=== PATIENT | female | born 1985 | race Caucasian/White ===

== ENCOUNTER → 2022-02-11 | Outpatient (CLI) | payer BC ==
[2022-02-11 13:13] VITALS: BP 129/83; PULSE 78; TEMP 97.9; BMI 31.3
--- NOTE | 2022-02-11 13:50 | P.BASOAP ---
Subjective Progress Note Date: 02/11/22 No further reflux. She reports increased protein intake. She believes she is getting over 75 grams daily. Hair is not falling out as much. No food journal. She feels great. She has lost 80 pounds. She is going to the gym three times per week. She is happy with her level of activity. She has appetite. She has occasional appetite. Follow up for anniversary. Objective - Vital Signs Vital signs: Vital Signs Temp 97.9 F 02/11/22 13:09 Pulse 78 02/11/22 13:09 Resp BP 129/83 02/11/22 13:09 Pulse Ox FiO2 Intake & Output 02/10/22 02/11/22 02/11/22 18:59 06:59 18:59 Weight 78.925 kg Assessment/Plan Plan: Date: 02/11/22 Initial Weight: 108.499 kg Initial BMI: 43.0 Current Weight: 78.925 kg Current BMI: 31.3 Type of Surgery: Total Volume in Band: Previous Volume: Volume Removed: Volume Added: Band Size:
[2022-02-11 14:57] LABS: INR 0.9 (<1.2)
[2022-02-11 14:58] LABS: Partial Thromboplastin Time 24.7 sec (22.0-30.0); Prothrombin Time 10.3 sec (9.0-12.0)
[2022-02-11 20:05] LABS: % Iron Saturation 18.28 (12.00-45.00); ALT 19 U/L (8-44); AST 22 U/L (13-35); Albumin 4.5 g/dL (3.8-4.9); Alkaline Phosphatase 46 U/L (41-126); BUN/Creat Ratio 17.11 Ratio (12.00-20.00); Blood Urea Nitrogen 15.4 mg/dL (9.0-27.0); Calcium 9.5 mg/dL (8.7-10.3); Carbon Dioxide 21.4 mmol/L (20.0-27.5); Chloride 106 mmol/L (96-109); Globulin 2.5 g/dL (1.6-3.3); Glucose 90 mg/dL (70-110); Iron 71 ug/dL (50-170); Magnesium 2.4 mg/dL (1.5-2.4); Non-African American GFR(CKD) 81.1 (60.0-200.0); Phosphorus 3.9 mg/dL (2.4-5.1); Potassium 4.1 mmol/L (3.5-5.5); Sodium 141 mmol/L (135-145); Total Bilirubin <0.15 mg/dL (0.30-1.20); Total Iron Binding Capacity 391 ug/dL (228-460)
[2022-02-11 20:28] LABS: Chol/HDL Ratio 4.97 Ratio; LDL Cholesterol,Calculated 71.4 mg/dL (0.0-131.0); Prealbumin 28.3 mg/dL (18.0-42.0)
[2022-02-11 21:37] LABS: Ferritin 44.4 ng/mL (10.0-291.0)
[2022-02-11 21:51] LABS: HCT 43.1 % (37.2-46.3); HGB 14.5 g/dL (12.0-15.0); MCH 30.9 pg (27.0-32.0); MCHC 33.6 g/dL (32.0-37.0); MCV 91.9 fL (80.0-97.0); Mean Platelet Volume 9.2 fL (9.5-12.2); NRBC Per 100 WBC 0 /100 WBCS (0.0-0.0); Platelet Count 288 X 10*3/uL (140-440); RBC 4.69 X 10*6/uL (4.10-5.20); RDW 13.1 % (11.5-14.5); WBC 9.12 X 10*3/uL (4.50-10.00)
[2022-02-12 13:52] LABS: Zinc, Serum 66 ug/dL (60-130)
[2022-02-13 06:00] LABS: Vit B1(Thiamine) 70 ug/L (38-122)
[2022-02-13 08:08] LABS: Vitamin A 61 ug/dL (38-106)
== END | disposition home or self-care (01) ==
LOC: MERGE 01-21 13:15 → BARWHC3 12:39
PROVIDERS: ATTEND Surgery Plastic and Reconstructive Surgery
DX: E66.01 Morbid (severe) obesity due to excess calories (principal); E89.1 Postprocedural hypoinsulinemia; D50.8 Other iron deficiency anemias; D50.9 Iron deficiency anemia, unspecified; K91.2 Postsurgical malabsorption, not elsewhere classified; E44.0 Moderate protein-calorie malnutrition; E44.1 Mild protein-calorie malnutrition; E45 Retarded development following protein-calorie malnutrition; E46 Unspecified protein-calorie malnutrition; E55.9 Vitamin D deficiency, unspecified; K74.1 Hepatic sclerosis; N19 Unspecified kidney failure; T56.894A Toxic effect of other metals, undetermined, initial encounter; K50.90 Crohn's disease, unspecified, without complications
CPT/HCPCS: 80053; 80061; 82306; 82607; 82728; 82746; 83036; 83540; 83550; 83735; 83970; 84100; 84134; 84255; 84425; 84443; 84590; 84630; 85027; 85610; 85730; 97803; 99211

== ENCOUNTER → 2022-10-28 | Outpatient (CLI) | payer BC ==
[2022-10-28 15:30] VITALS: BP 141/88; PULSE 80; TEMP 98.2; BMI 34.5
--- NOTE | 2022-10-28 16:18 | P.HPBAR ---
Bariatric H&P - History & Physicial H&P Date: 10/28/22 History & Physicial: Visit/CC: sleeve F/U Patient initial contact: Initial weight: 108.499 kg Initial weight in pounds: 239.20 Height: 5 ft 2.5 in Initial BMI: 43.0 Last weight: Current weight: 87.09 kg Current weight in pounds: 192.00 Current BMI: 34.5 [place] body weight (based on NIH guidelines): 51.029 kg Excess body weight loss: 37.2% The patient is a 37 year-old F who presents for Bariatric Assessment. She comes in with 20 pounds weight gain following of her father. She was depressed. She is looking for weight loss. Dosage of sertraline causes weight gain. Plan for blood work and 2 week protein diet. She has dysphagia, chest pian, and intractable nausea. Recommend upper endoscopy. Past Medical History Past Medical History: Cancer, GERD/Reflux, Hypertension, Skin Disorder, Sleep Apnea/CPAP/BIPAP Additional Past Medical History / Comment(s): basal cell/squamous cell cancer. uses CPAP. bronchitis. History of Any Multi-Drug Resistant Organisms: None Reported Past Surgical History: Adenoidectomy, Bariatric Surgery, Tonsillectomy Additional Past Surgical History / Comment(s): wisdom teeth. basal cell/squamous cells removed. polyp removed 2020 in back of throat. EGD, gastric sleeve 2020 Past Anesthesia/Blood Transfusion Reactions: Previous Problems w/ Anesthesia Additional Past Anesthesia/Blood Transfusion Reaction / Comm: STATES HAD POST SUCCINYLOCHOLINE MYALGIA ONE TIME DURING POLYPS BEING REMOVED FROM THROAT Past Psychological History: Anxiety, Depression Additional Psychological History / Comment(s): depression.-RESOLVED Smoking Status: Former smoker Past Alcohol Use History: Rare Additional Past Alcohol Use History / Comment(s): quit smoking 11/14/20 Past Drug Use History: None Reported - Past Family History Mother Family Medical History: Deep Vein Thrombosis (DVT) Additional Family Medical History / Comment(s): brain aneuyrsm Surgical - Exam Vital Signs Temp Pulse BP 98.2 F 80 141/88 10/28/22 15:28 10/28/22 15:28 10/28/22 15:28 Bariatric Checklist Checklist: Plan: Checklist: EGD: 1. Hiatal hernia: 2. H. Pylori: HgbA1c: Vitamin D: Smoking: Primary care physician referral: Dr. Smith Psychiatry clearance: Cardiology clearance: Sleep study: Diet journal: VTE risk score: VTE risk level: Rehab needs at discharge:
== END ==
LOC: BARWHC3 14:33
PROVIDERS: ATTEND Surgery Plastic and Reconstructive Surgery
DX: E66.01 Morbid (severe) obesity due to excess calories (principal); I10 Essential (primary) hypertension; Z87.891 Personal history of nicotine dependence; Z68.34 Body mass index [BMI] 34.0-34.9, adult; Z88.5 Allergy status to narcotic agent; Z88.6 Allergy status to analgesic agent
CPT/HCPCS: 99211

== ENCOUNTER → 2022-10-29 | Outpatient (CLI) | payer BC ==
[2022-10-29 09:30] LABS: Partial Thromboplastin Time 23.5 sec (22.0-30.0); Prothrombin Time 10.2 sec (9.0-12.0)
[2022-10-29 14:48] LABS: HCT 41.6 % (37.2-46.3); HGB 14.2 g/dL (12.0-15.0); MCH 31.6 pg (27.0-32.0); MCHC 34.1 g/dL (32.0-37.0); MCV 92.7 fL (80.0-97.0); Mean Platelet Volume 9.2 fL (9.5-12.2); NRBC Per 100 WBC 0 /100 WBCS (0.0-0.0); Platelet Count 249 X 10*3/uL (140-440); RBC 4.49 X 10*6/uL (4.10-5.20); RDW 12.8 % (11.5-14.5); WBC 6.54 X 10*3/uL (4.50-10.00)
[2022-10-29 15:25] LABS: Chol/HDL Ratio 4.64 Ratio; Prealbumin 24.7 mg/dL (18.0-42.0)
[2022-10-29 15:59] LABS: % Iron Saturation 29.12 (12.00-45.00); ALT 20 U/L (8-44); AST 16 U/L (13-35); African American GFR (CKD) 126.5 (60.0-200.0); Albumin 4.3 g/dL (3.8-4.9); Albumin/Globulin Ratio 1.87 (1.60-3.17); Alkaline Phosphatase 36 U/L (41-126); BUN/Creat Ratio 17.29 Ratio (12.00-20.00); Blood Urea Nitrogen 12.1 mg/dL (9.0-27.0); Calcium 9.2 mg/dL (8.7-10.3); Carbon Dioxide 21.5 mmol/L (20.0-27.5); Chloride 105 mmol/L (96-109); Globulin 2.3 g/dL (1.6-3.3); Glucose 89 mg/dL (70-110); Iron 117 ug/dL (50-170); Magnesium 2.1 mg/dL (1.5-2.4); Non-African American GFR(CKD) 109.1 (60.0-200.0); Phosphorus 3.2 mg/dL (2.4-5.1); Potassium 3.9 mmol/L (3.5-5.5); Sodium 140 mmol/L (135-145); Total Iron Binding Capacity 402 ug/dL (228-460); Total Protein 6.6 g/dL (6.2-8.2)
[2022-10-30 12:45] LABS: Zinc, Serum 70 ug/dL (60-130)
== END | disposition home or self-care (01) ==
LOC: LABWHC1 08:31
PROVIDERS: ATTEND Surgery Plastic and Reconstructive Surgery
DX: E66.01 Morbid (severe) obesity due to excess calories (principal); E89.1 Postprocedural hypoinsulinemia; D50.8 Other iron deficiency anemias; E44.0 Moderate protein-calorie malnutrition; E55.9 Vitamin D deficiency, unspecified; K74.1 Hepatic sclerosis; N19 Unspecified kidney failure; K91.2 Postsurgical malabsorption, not elsewhere classified; E44.1 Mild protein-calorie malnutrition; E45 Retarded development following protein-calorie malnutrition; E46 Unspecified protein-calorie malnutrition; T56.894A Toxic effect of other metals, undetermined, initial encounter; K50.90 Crohn's disease, unspecified, without complications
CPT/HCPCS: 36415; 80053; 80061; 82306; 82525; 82607; 82728; 82746; 83036; 83540; 83550; 83735; 83970; 84100; 84134; 84255; 84425; 84443; 84590; 84630; 85027; 85610; 85730